=== PATIENT | female | born 1985 | race Caucasian/White ===

== ENCOUNTER → 2018-05-19 12:27 | Outpatient (CLI) | payer OTHER, SELFPAY ==
[2018-05-19 13:21] LABS: Alanine Aminotransferase 23 IU/L (9-52); Albumin 4.6 g/dL (3.5-5.0); Albumin Globulin Ratio 1.9 (1.0-2.8); Alkaline Phosphatase 35 U/L (38-126); Aspartate Aminotransferase 23 IU/L (14-36); BUN Creatinine Ratio 17.1 (6-22); Bilirubin Total 0.5 mg/dL (0.2-1.3); Blood Urea Nitrogen 12 mg/dL (7-17); Calcium 9.5 mg/dL (8.4-10.2); Carbon Dioxide 24 mmol/L (22-32); Chloride 105 mmol/L (98-107); Cholesterol 178 mg/dL (140-199); Estimated Glomerular Filt Rate > 60.0 mL/min (>60); Globulin 2.4 g/dL (1.7-4.1); Glucose 112 mg/dL (70-100); HDL Cholesterol 60 mg/dL (40-60); HEMOLYSIS < 15 (0-50); LDL Cholesterol Calculated 104 mg/dL (<100); Sodium 142 mmol/L (137-145); Triglycerides 70 mg/dL (35-150)
[2018-05-19 13:36] LABS: Urine Amphetamines Negative (Negative); Urine Barbiturates Negative (Negative); Urine Benzodiazepines Negative (Negative); Urine Cocaine Negative (Negative); Urine MDMA Negative (Negative); Urine Methadone Negative (Negative); Urine Methamphetamines Negative (Negative); Urine Morphine/Opi cutoff 2000 Negative (Negative); Urine Oxycodone Negative (Negative); Urine Phencyclidine Negative (Negative); Urine Tetrahydrocannabinol Positive (Negative); Urine Tricyclic Antidepressant Negative (Negative)
[2018-05-19 13:46] LABS: Thyroid Stimulating Hormone 0.76 uIU/mL (0.47-4.68)
[2018-05-19 14:34] LABS: Free T4, Direct Thyroxine 1.16 ng/dL (0.78-2.19)
[2018-05-19 22:31] LABS: Add Manual Diff / Slide Review NO; Basophils Percent Auto 0.3 % (0-2); Eosinophils Percent Auto 0.4 % (2-4); Hematocrit 38.4 % (36-46); Hemoglobin 12.5 g/dL (12.0-16.0); Lymphocytes Percent Auto 29.3 % (25-40); Mean Corpuscular HGB Conc 32.6 % (30-36); Mean Corpuscular Hemoglobin 28.1 PG (26-34); Mean Corpuscular Volume 86.1 fL (80-100); Monocytes Percent Auto 9.6 % (3-14); Neutrophils Absolute Auto 3100 /uL (3000-5900); Neutrophils Percent Auto 60.4 % (50-75); Platelet Count 192 X10^3/uL (150-400); Red Blood Cell Count 4.45 X10^6/uL (4.0-5.2); Red Cell Distribution Width 19.4 % (11.6-14.8); White Blood Cell Count 5.2 X10^3/uL (4.5-11.0)
[2018-05-20 15:24] LABS: Anti Thyroglobulin Antibody 2 IU/mL (< 2); Thyroid Peroxidase Antibodies 1 IU/mL (< 9)
[2018-05-20 15:53] LABS: Triiodothyronine T3 Total 66 ng/dL (76-181)
== END ==
PROVIDERS: Visit Provider Psychiatry & Neurology Psychiatry
DX: F33.9 Major depressive disorder, recurrent, unspecified (principal); G47.10 Hypersomnia, unspecified; F41.9 Anxiety disorder, unspecified; F90.9 Attention-deficit hyperactivity disorder, unspecified type; F13.20 Sedative, hypnotic or anxiolytic dependence, uncomplicated
CPT/HCPCS: 36415; 80053; 80061; 80305; 84439; 84443; 84480; 84481; 85025; 86376; 86800

== ENCOUNTER 2020-11-11 18:39 | Emergency (ER) | payer OTHER, SELFPAY ==
[2020-11-11 18:40] VITALS: PULSE 108; RESP 24; TEMP 36.8; O2SAT 98
[2020-11-11 19:15] LABS: COVID19 -Nasal RAPID Negative (Negative)
[2020-11-11] MEDS: ONDANSETRON 4 MG/2 ML INJ (19:30)
[2020-11-11 19:38] LABS: Add Manual Diff / Slide Review NO; Basophils Absolute Auto 100 /uL (0-100); Basophils Percent Auto 0.7 % (0-2); Eosinophils Absolute Auto 0 /uL (0-450); Eosinophils Percent Auto 0.5 % (2-4); Hematocrit 38.6 % (36-46); Hemoglobin 12.4 g/dL (12.0-16.0); Lymphocytes Absolute Auto 2200 /uL (1100-4500); Lymphocytes Percent Auto 23.8 % (25-40); Mean Corpuscular HGB Conc 32.2 % (30-36); Mean Corpuscular Hemoglobin 28.4 PG (26-34); Mean Corpuscular Volume 88.2 fL (80-100); Monocytes Absolute Auto 600 /uL (0-900); Neutrophils Absolute Auto 6300 /uL (1500-7000); Platelet Count 221 X10^3/uL (150-400); Red Blood Cell Count 4.38 X10^6/uL (4.0-5.2); Red Cell Distribution Width 17.2 % (11.6-14.8); White Blood Cell Count 9.3 X10^3/uL (4.5-11.0)
[2020-11-11 19:42] LABS: Alanine Aminotransferase 13 IU/L (<35); Albumin 4.4 g/dL (3.5-5.0); Albumin Globulin Ratio 1.8 (1.0-2.8); Alkaline Phosphatase 49 U/L (38-126); Aspartate Aminotransferase 22 IU/L (14-36); BUN Creatinine Ratio 19.4 (6-22); Bilirubin Total 0.3 mg/dL (0.2-1.3); Blood Urea Nitrogen 14 mg/dL (7-17); Calcium 9.2 mg/dL (8.4-10.2); Carbon Dioxide 23 mmol/L (22-32); Chloride 108 mmol/L (98-107); Estimated Glomerular Filt Rate > 60.0 mL/min (>60); Globulin 2.5 g/dL (1.7-4.1); Glucose 100 mg/dL (70-100); HEMOLYSIS < 15 (0-50); Lipase 137 U/L (23-300); Potassium 3.8 mmol/L (3.4-5.1); Sodium 139 mmol/L (137-145); Total Protein 6.9 g/dL (6.3-8.2)
[2020-11-11 19:50] LABS: INR 1.2 (0.9-1.3); Prothrombin Time 13.2 SECONDS (10.1-12.7)
[2020-11-11 19:53] LABS: PTT Partial Thromboplastin Tim 31 SECONDS (26.4-36.2)
--- NOTE | 2020-11-11 20:49 | ED.NAVMDI ---
HPI - Nausea/Vomiting/Diarrhea General Chief complaint: Nausea/Vomiting/Diarrhea Stated complaint: DIARRHEA VOMITING CRAMPING Time Seen by Provider: 11/11/20 18:43 Source: patient Mode of arrival: Ambulatory Limitations: no limitations History of Present Illness HPI Narrative: 35-year-old female smoker without any significant medical history presents with a chief complaint of multiple episodes of nausea, vomiting and diarrhea over the course of the day. She also developed a vague, nonspecific headache with these symptoms. She denies any fever chills. She denies any neurologic symptoms such as blurred vision, trouble with speech or numbness, tingling or weakness of extremities. She denies any neck pain or recent injury. She denies recent travel, use of antibiotics or exposure to bad food. She denies any exposure to other ill persons with similar circumstances and states she has had no known exposure to COVID. She is not dizzy nor weak or lightheaded. MD complaint: nausea, vomiting and diarrhea Onset (ago): hour(s) Description of Vomiting: food contents Description of Diarrhea: watery Associated Abdominal Pain: Yes (mild cramping) Location of pain: diffuse Radiation: diffuse Severity: mild Quality: cramping Relieving factors: none Exacerbating factors: none Associated symptoms: headaches Related Data Home Medications Medication Instructions Recorded Confirmed clonazepam 1 mg PO #0 09/29/17 lamotrigine [Lamictal] 150 mg PO QDAY #0 09/29/17 sertraline 100 mg PO QDAY #0 09/29/17 Previous Rx's Medication Instructions Recorded azithromycin [Zithromax] 250 mg PO SEE INSTRUCTIONS #6 tab 10/08/17 ciprofloxacin-hydrocortisone 1 drp OTIC BID #1 bot 10/08/17 [Cipro HC] alprazolam 0.25 mg PO Q12HP PRN #14 tab 11/29/17 diphenoxylate-atropine [Lomotil] 1 tab PO BEDTIME PRN #10 tab 11/11/20 ondansetron 4 mg PO TID-QID PRN #10 tab 11/11/20 Allergies Allergy/AdvReac Type Severity Reaction Status Date / Time prochlorperazine Allergy Unknown Unverified 12/29/17 12:50 [From COMPAZINE] Review of Systems Constitutional Constitutional: Denies chills, Denies fatigue, Denies fever(s), Denies frequent falls, Reports headache(s), Denies lethargy and Denies weakness Eyes Eyes: Denies change in vision, Denies eye discharge, Denies irritation and Denies loss of vision ENT Ears, Nose, Mouth, and Throat: Denies change in voice, Denies dizziness, Reports headache(s), Denies neck pain, Denies sore throat and Denies throat swelling Cardiovascular Cardiovascular: Denies chest pain, Denies irregular heart rhythm, Denies lightheadedness, Denies palpitations, Denies dyspnea, Denies dyspnea on exertion and Denies orthopnea Respiratory Respiratory: Denies cough, Denies dyspnea, Denies dyspnea on exertion and Denies wheezing Gastrointestinal Gastrointestinal: Reports abdominal pain, Denies change in bowel habits, Reports diarrhea, Reports nausea and Reports vomiting Musculoskeletal Musculoskeletal: Denies neck pain and Denies numbness Integumentary/Breasts Skin/Breast: Denies pruritus, Denies erythema, Denies rash and Denies wounds Neurologic Neurologic: Denies behavioral changes, Denies confusion, Denies dizziness, Denies frequent falls, Reports headache(s), Denies loss of vision, Denies numbness and Denies weakness Psychiatric Psychiatric: Denies anxiety, Denies behavioral changes, Denies confusion, Denies depression, Denies homicidal ideation and Denies suicidal ideation Endocrine Endocrine: Denies fatigue, Denies flushing and Denies palpitations Hematologic/Lymphatic Hematologic/Lymphatic: Denies easy bruising Allergic/Immunologic Allergic/Immunologic: Denies urticaria, Denies throat swelling and Denies wheezing Patient History Social History Smoking Status: Current some day smoker Smoking Status: Current some day smoker Exam Narrative Exam Narrative: GENERAL: [35] year old patient appears stated age. Well-nourished, well-developed patient, in mild distress. HEAD: Atraumatic. Normocephalic. EYES: Pupils equal round and reactive. Extraocular motions intact. No scleral icterus. No injection or drainage. ENT: Moist mucous membranes Nose without bleeding, purulent drainage. Throat without erythema, tonsillar hypertrophy or exudate. Airway patent. NECK: Trachea midline. Non tender CARDIOVASCULAR: Tachycardic but regular rhythm without murmurs, gallops, or rubs. RESPIRATORY: Clear to auscultation. Breath sounds equal bilaterally. No wheezes, rales, or rhonchi. GASTROINTESTINAL: Abdomen soft, non-tender, nondistended. EXTREMITIES: No edema or joint tenderness. BACK: Nontender without deformity or crepitance. No flank tenderness. NEURO: AOx3. SKIN: No rash or erythema of visible areas Initial Vital Signs Initial Vital Signs: Vital Signs Temperature 98.2 F 11/11/20 18:40 Pulse Rate 108 H 11/11/20 18:40 Respiratory Rate 24 11/11/20 18:40 Pulse Oximetry 98 11/11/20 18:40 Course Orders Ordered: ED Orders 11/11/20 18:44 COVID19 Stat 11/11/20 19:24 Complete Blood Count AUTO DIFF Stat Comprehensive Metabolic Panel Stat Lipase Stat Partial Thromboplastin Time Stat Prothrombin Time INR Stat Discontinued Medications Ondansetron HCl (Ondansetron 4 Mg/2 Ml Inj) 4 mg IV NOW ONE Stop: 11/11/20 19:30 Last Admin: 11/11/20 19:31 Dose: Not Given Documented by: FATOU Ondansetron HCl (Ondansetron 4 Mg Odt Prepack) 1 bottle MISC SEEINSTR ONE Stop: 11/11/20 20:56 Last Admin: 11/11/20 21:01 Dose: 1 bottle Documented by: ADELFO Reevaluation(s) Reevaluation #1: Patient with significant improvement with above-stated therapies, vital signs have normalized Vital Signs Vital signs: Vital Signs - 8 hr 11/11/20 18:40 11/11/20 21:06 11/11/20 21:09 Temperature 98.2 F Pulse Rate 108 H 72 74 Respiratory Rate 24 16 16 Blood Pressure 95/50 L 95/54 L Pulse Oximetry 98 98 98 MDM - Nausea/Vomiting/Diarrhea Lab Data Result diagrams: 11/11/20 19:24 11/11/20 19:24 Labs: Lab Results 11/11/20 11/11/20 11/11/20 Range/Units 18:44 19:24 19:24 WBC 9.3 (4.5-11.0) X10^3/uL RBC 4.38 (4.0-5.2) X10^6/uL Hgb 12.4 (12.0-16.0) g/dL Hct 38.6 (36-46) % MCV 88.2 (80-100) fL MCH 28.4 (26-34) PG MCHC 32.2 (30-36) % RDW 17.2 H (11.6-14.8) % Plt Count 221 (150-400) X10^3/uL Neut % (Auto) 68.0 (50-75) % Lymph % (Auto) 23.8 L (25-40) % [place] % (Auto) 7.0 (3-14) % Eos % (Auto) 0.5 L (2-4) % Baso % (Auto) 0.7 (0-2) % Neut # (Auto) 6300 (2783-8600) /uL Lymph # (Auto) 2200 (3025-1426) /uL [place] # (Auto) 600 (0-900) /uL Eos # (Auto) 0 (0-450) /uL Baso # (Auto) 100 (0-100) /uL PT 13.2 H (10.1-12.7) SECONDS INR 1.2 (0.9-1.3) APTT 31 (26.4-36.2) SECONDS Sodium (137-145) mmol/L Potassium (3.4-5.1) mmol/L Chloride (98-107) mmol/L Carbon Dioxide (22-32) mmol/L BUN (7-17) mg/dL Creatinine (0.52-1.04) mg/dL Estimated GFR (>60) mL/min BUN/Creatinine Ratio (6-22) Glucose (70-100) mg/dL Calcium (8.4-10.2) mg/dL Total Bilirubin (0.2-1.3) mg/dL AST (14-36) IU/L ALT (<35) IU/L Alkaline Phosphatase (38-126) U/L Total Protein (6.3-8.2) g/dL Albumin (3.5-5.0) g/dL Globulin (1.7-4.1) g/dL Albumin/Globulin Ratio (1.0-2.8) Lipase (23-300) U/L SARS-CoV-2 (PCR) Negative (Negative) 11/11/20 Range/Units 19:24 WBC (4.5-11.0) X10^3/uL RBC (4.0-5.2) X10^6/uL Hgb (12.0-16.0) g/dL Hct (36-46) % MCV (80-100) fL MCH (26-34) PG MCHC (30-36) % RDW (11.6-14.8) % Plt Count (150-400) X10^3/uL Neut % (Auto) (50-75) % Lymph % (Auto) (25-40) % [place] % (Auto) (3-14) % Eos % (Auto) (2-4) % Baso % (Auto) (0-2) % Neut # (Auto) (0835-7091) /uL Lymph # (Auto) (1397-0531) /uL [place] # (Auto) (0-900) /uL Eos # (Auto) (0-450) /uL Baso # (Auto) (0-100) /uL PT (10.1-12.7) SECONDS INR (0.9-1.3) APTT (26.4-36.2) SECONDS Sodium 139 (137-145) mmol/L Potassium 3.8 (3.4-5.1) mmol/L Chloride 108 H (98-107) mmol/L Carbon Dioxide 23 (22-32) mmol/L BUN 14 (7-17) mg/dL Creatinine 0.72 (0.52-1.04) mg/dL Estimated GFR > 60.0 (>60) mL/min BUN/Creatinine Ratio 19.4 (6-22) Glucose 100 (70-100) mg/dL Calcium 9.2 (8.4-10.2) mg/dL Total Bilirubin 0.3 (0.2-1.3) mg/dL AST 22 (14-36) IU/L ALT 13 (<35) IU/L Alkaline Phosphatase 49 (38-126) U/L Total Protein 6.9 (6.3-8.2) g/dL Albumin 4.4 (3.5-5.0) g/dL Globulin 2.5 (1.7-4.1) g/dL Albumin/Globulin Ratio 1.8 (1.0-2.8) Lipase 137 (23-300) U/L SARS-CoV-2 (PCR) (Negative) MDM Narrative Medical decision making narrative: Multiple etiologies for patient's symptoms considered including: [Viral illness versus COVID versus other] Patient's symptoms improved over duration of stay with above-stated therapies. Findings and discharge diagnosis discussed with patient/family followed by verbalization of understanding Return precautions discussed with patient/family whom verbalize understanding. Discharge Plan Departure Patient Disposition: Home Clinical Impression: Vomiting Qualifiers: Vomiting type: unspecified Vomiting Intractability: non-intractable Nausea presence: with nausea Qualified Code(s): R11.2 - Nausea with vomiting, unspecified Diarrhea Qualifiers: Diarrhea type: unspecified type Qualified Code(s): R19.7 - Diarrhea, unspecified Activity Restrictions/Additional Instructions: *You have been diagnosed with [nausea, vomiting and diarrhea, exam and lab work are very reassuring] *What to do: *Take medications as directed: Prescriptions sent to [facility] at your request *Follow up with your primary care provider in 2-3 days, call for an appointment. Let them know you were seen in the Emergency Department and that we ask that you be seen in follow up *Return to ER if you should have any new, worsening or concerning symptoms, such as [fever greater than 101 F, inability to tolerate clear liquids, other bothersome symptoms 1. Drink plenty of fluids with frequent small sips. 2. For the next 24 hours a clear liquid diet is advised. After that please employ a B.R.A.T. diet which would include bananas, rice, apples, toast and other mild food items Prescriptions: New diphenoxylate-atropine [Lomotil] 2.5-0.025 mg tablet 1 tab PO BEDTIME PRN (Reason: diarrhea) Qty: 10 RF: 0 ondansetron 4 mg tablet,disintegrating 4 mg PO TID-QID PRN (Reason: nausea and vomiting) Qty: 10 RF: 0 No Action lamotrigine [Lamictal] 150 MG tablet 150 mg PO QDAY Qty: 0 RF: 0 sertraline 100 MG tablet 100 mg PO QDAY Qty: 0 RF: 0 clonazepam 1 MG tablet 1 mg PO Qty: 0 RF: 0 azithromycin [Zithromax] 250 MG tablet 250 mg PO SEE INSTRUCTIONS Qty: 6 RF: 0 ciprofloxacin-hydrocortisone [Cipro HC] 10 ML drops,suspension 1 drp OTIC BID Qty: 1 RF: 0 alprazolam 0.25 MG tablet 0.25 mg PO Q12HP PRNQty: 14 RF: 0
[2020-11-11] MEDS: ONDANSETRON 4 MG ODT PREPACK 1 BOTTLE MISC (21:01)
[2020-11-11 21:06] VITALS: BP 95/50; PULSE 72; RESP 16; O2SAT 98
[2020-11-11 21:09] VITALS: BP 95/54; PULSE 74; RESP 16; O2SAT 98
== END 2020-11-11 21:08 | disposition home or self-care (01) ==
PROVIDERS: Emergency Provider Emergency Medicine
DX: R11.2 Nausea with vomiting, unspecified (principal); R19.7 Diarrhea, unspecified; Z20.822 Contact with and (suspected) exposure to COVID-19
CPT/HCPCS: 80053; 83690; 85025; 85610; 85730; 87635; 99281; 99283; C9803; J2405

== ENCOUNTER 2021-06-13 15:19 | Emergency (ER) | payer OTHER, SELFPAY ==
[2021-06-13 15:25] VITALS: BP 162/94; PULSE 74; RESP 15; TEMP 37.3; O2SAT 98; BMI 23.3
--- NOTE | 2021-06-13 15:46 | ED.URI ---
HPI - URI/Sore Throat <Mehdi Couch PA-C - Last Filed: 06/13/21 18:14> General Chief Complaint: Upper Respiratory Symptoms Stated Complaint: sore throat sob covid? Time Seen by Provider: 06/13/21 15:22 Source: patient Mode of arrival: Ambulatory Limitations: no limitations History of Present Illness HPI Narrative: Judy presents today with chief complaint of sinus congestion, mild runny nose, sore throat, and slight cough that started 2 days ago. She reports that her symptoms are mild but she is concerned about COVID. She is fully vaccinated for COVID but interacts with public frequently through her job. She denies any significant chest pain, difficulty breathing, fever, vision changes, headache, difficulty swallowing or any other acute concerns or complaints at this time. Related Data Home Medications Medication Instructions Recorded Confirmed clonazepam 1 mg tablet 1 mg PO #0 09/29/17 lamotrigine 150 mg tablet 150 mg PO QDAY #0 09/29/17 (Lamictal) sertraline 100 mg tablet 100 mg PO QDAY #0 09/29/17 Previous Rx's Medication Instructions Recorded azithromycin 250 mg tablet 250 mg PO SEE INSTRUCTIONS #6 tab 10/08/17 (Zithromax) ciprofloxacin 0.2 %-hydrocortisone 1 drp OTIC BID #1 bot 10/08/17 1 % ear drops,suspension (Cipro HC) alprazolam 0.25 mg tablet 0.25 mg PO Q12HP PRN #14 tab 11/29/17 sertraline 100 mg tablet (Zoloft) 100 mg PO DAILY #7 tab 12/16/19 diphenoxylate-atropine 2.5 1 tab PO BEDTIME PRN #10 tab 11/11/20 mg-0.025 mg tablet (Lomotil) ondansetron 4 mg disintegrating 4 mg PO TID-QID PRN #10 tab 11/11/20 tablet Allergies Allergy/AdvReac Type Severity Reaction Status Date / Time prochlorperazine Allergy Unknown Verified 06/13/21 15:29 [From COMPAZINE] Review of Systems <Mehdi Couch PA-C - Last Filed: 06/13/21 18:14> Review of Systems Narrative: As per HPI Patient History <Mehdi Couch PA-C - Last Filed: 06/13/21 18:14> Social History (System 01/01/21 @ 10:59 by Haylie Matthew) Smoking Status: Current every day smoker Smoking Status: Current every day smoker alcohol intake frequency: holidays/special occasions only Substance Use Type: does not use Exam <Mehdi Couch PA-C - Last Filed: 06/13/21 18:14> Narrative Exam Narrative: Const General: cooperative, healthy appearing, comfortable and no acute distress Nutritional Appearance: average body habitus and well nourished Orientation: alert and oriented x3 HENMT Head: normal to inspection and normocephalic Ears: hearing grossly normal bilaterally, external ears normal, TM's normal bilaterally, EAC's normal, mastoids normal and no periauricular adenopathy Nose: external nose normal, nares normal and no nasal discharge Face and sinus: normal facial exam, sinuses nontender and face symmetric Mouth: oral mucosae normal, lip normal, tongue normal and moist mucous membranes Teeth and gingiva: dentition normal and gingiva normal Throat: posterior oropharynx normal, uvula midline, no postnasal drainage and no uvular edema Eyes periorbital findings normal, eyelids normal, conjunctivae normal Neck: normal visual inspection, full ROM, no lymphadenopathy, no meningeal signs and supple Resp normal respiratory effort, able to speak in complete sentences, not labored and no respiratory distress, clear to auscultation bilaterally, no crackles, no rales and no wheezes Cardio regular rate regular rhythm Heart Sounds: no gallops, no murmurs and no rubs Initial Vital Signs Initial Vital Signs: Vital Signs Temperature 99.2 F 06/13/21 15:25 Pulse Rate 74 06/13/21 15:25 Respiratory Rate 15 06/13/21 15:25 Blood Pressure 162/94 H 06/13/21 15:25 Pulse Oximetry 98 06/13/21 15:25 <Danny De La Cruz DO - Last Filed: 06/13/21 18:22> Initial Vital Signs Initial Vital Signs: Vital Signs Temperature 99.2 F 06/13/21 15:25 Pulse Rate 74 06/13/21 15:25 Respiratory Rate 15 06/13/21 15:25 Blood Pressure 162/94 H 06/13/21 15:25 Pulse Oximetry 98 06/13/21 15:25 Course <STEVIE Jeffery Last Filed: 06/13/21 18:14> Orders Ordered: ED Orders 06/13/21 15:24 COVID19 -Nasal swab/Pre-Proc Stat Vital Signs Vital signs: Vital Signs - 8 hr 06/13/21 15:25 06/13/21 16:52 Temperature 99.2 F Pulse Rate 74 74 Respiratory Rate 15 18 Blood Pressure 162/94 H 164/92 H Pulse Oximetry 98 99 <Danny De La Cruz DO - Last Filed: 06/13/21 18:22> Orders Ordered: ED Orders 06/13/21 15:24 COVID19 -Nasal swab/Pre-Proc Stat Vital Signs Vital signs: Vital Signs - 8 hr 06/13/21 15:25 06/13/21 16:52 Temperature 99.2 F Pulse Rate 74 74 Respiratory Rate 15 18 Blood Pressure 162/94 H 164/92 H Pulse Oximetry 98 99 MDM - URI/Sore Throat <Mehdi Couch PA-C - Last Filed: 06/13/21 18:14> Lab Data Labs: Lab Results 06/13/21 Range/Units 15:24 SARS-CoV-2 (PCR) Negative (Negative) Point of Care Testing Rapid Strep A Negative MDM Narrative Medical decision making narrative: Differential diagnosis includes pneumonia, SARS-CoV-2 infection, viral URI, sinusitis. Patient appears well at this time and does not have any significant signs or symptoms of systemic illness. She has a negative strep test and negative COVID test. Physical examination is reassuring. Recommend symptomatic therapy with [id number] medications and PCP follow-up as needed. Patient verbalizes understanding and agrees to plan and has no further concerns at this time. Thank you A [id number] system was used with the dictation of this note. Please disregard any spelling or grammatical errors. <Danny De La Cruz DO - Last Filed: 06/13/21 18:22> Lab Data Labs: Lab Results 06/13/21 Range/Units 15:24 SARS-CoV-2 (PCR) Negative (Negative) Point of Care Testing Rapid Strep A Negative Discharge Plan Departure Patient Disposition: Home Clinical Impression: Upper respiratory infection Qualifiers: URI type: unspecified URI Qualified Code(s): J06.9 - Acute upper respiratory infection, unspecified Activity Restrictions/Additional Instructions: It was nice to meet you this afternoon. Your evaluation today has been reassuring COVID test is negative. Please use [id number] symptomatic therapy to help with symptoms. Thank you Mehdi Couch PA-C Prescriptions: No Action sertraline [Zoloft] 100 mg tablet 100 mg PO DAILY Qty: 7 RF: 0 lamotrigine [Lamictal] 150 MG tablet 150 mg PO QDAY Qty: 0 RF: 0 sertraline 100 MG tablet 100 mg PO QDAY Qty: 0 RF: 0 clonazepam 1 MG tablet 1 mg PO Qty: 0 RF: 0 azithromycin [Zithromax] 250 MG tablet 250 mg PO SEE INSTRUCTIONS Qty: 6 RF: 0 ciprofloxacin-hydrocortisone [Cipro HC] 10 ML drops,suspension 1 drp OTIC BID Qty: 1 RF: 0 alprazolam 0.25 MG tablet 0.25 mg PO Q12HP PRNQty: 14 RF: 0 diphenoxylate-atropine [Lomotil] 2.5-0.025 mg tablet 1 tab PO BEDTIME PRN (Reason: diarrhea) Qty: 10 RF: 0 ondansetron 4 mg tablet,disintegrating 4 mg PO TID-QID PRN (Reason: nausea and vomiting) Qty: 10 RF: 0 <Danny De La Cruz, DO - Last Filed: 06/13/21 18:22> [facility] Dr De La Cruz Co-Sign Statement: I was available for consultation during this patient's emergency department visit. This chart is signed by myself for administrative purposes only. I did not have direct contact with this patient during this visit. They were seen independently by the APC.
--- NOTE | 2021-06-13 15:47 | PC.NURSE ---
pt resting comfortably on stretcher upon assessment. Lung sounds clear and no IWOB. pt swabbed for strep and covid in triage
[2021-06-13 16:40] LABS: COVID19 -Nasal RAPID Negative (Negative)
[2021-06-13 16:52] VITALS: BP 164/92; PULSE 74; RESP 18; O2SAT 99
== END 2021-06-13 16:53 | disposition home or self-care (01) ==
PROVIDERS: Emergency Medicine; Emergency Provider Physician Assistant
DX: J06.9 Acute upper respiratory infection, unspecified (principal); R05 Cough; Z20.822 Contact with and (suspected) exposure to COVID-19
CPT/HCPCS: 87635; 87880; 99282; C9803